=== PATIENT | female | born 1980 | race Caucasian/White ===

== ENCOUNTER 2024-01-03 15:47 | Outpatient (CLI) | payer MEDICAID, OTHER | END 2024-01-03 15:48 | disposition home or self-care (01) | LOC: CSHLAB 15:47 | PROVIDERS: ATTEND Obstetrics & Gynecology | DX: Z01.812 Encounter for preprocedural laboratory examination (principal); Z85.3 Personal history of malignant neoplasm of breast | CPT/HCPCS: 84703; 85027; 86850; 86900; 86901 ==

== ENCOUNTER 2024-01-07 08:21 | Day surgery (SDC) | payer OTHER ==
[2024-01-03 17:14] LABS: Hematocrit 38.4 % (34.9-44.5); Hemoglobin 13.3 g/dL (12.0-15.5); Mean Corpuscular HGB CONC 34.6 g/dL (32.0-36.0); Mean Corpuscular Hemoglobin 31.3 pg (27.0-33.0); Mean Corpuscular Volume 90.4 fL (81.6-98.3); Mean Platelet Volume 10.2 fL (7.4-10.4); Platelet Count 220 10x3/uL (150-450); RBC Distribution Width 11.9 % (11.5-14.5); Red Blood Cell (RBC) Count 4.25 10x6/uL (3.90-5.03); White Blood Cell (WBC) Count 6.8 10x3/uL (3.5-10.5)
[2024-01-03 17:27] LABS: BHCG - Serum Negative (NEGATIVE); Pregs Control Background? CLEAR/WHITE (CLR/WHITE); Pregs Control Bar Appear? YES (CONTROL BAR)
[2024-01-07] MEDS ORDERED: CeleCOXIB 100 MG CAP ONE (08:38)
[2024-01-07] MEDS ORDERED: Gabapentin 300 MG CAP ONE (08:38)
[2024-01-07] MEDS ORDERED: Famotidine/PF 20 mg/2ml Vial ONE (08:39)
[2024-01-07] MEDS ORDERED: EPINEPHrine 1 MG/ML VIAL ONE (09:12)
[2024-01-07] MEDS ORDERED: Bupivacaine PF 0.5% 30 ML VIAL ONE (09:12)
[2024-01-07] MEDS ORDERED: CEFAZOLIN 2 GM VIAL ONE (10:02)
[2024-01-07] MEDS ORDERED: Rocuronium Bromide 10 MG/ML (10ML VIAL) ONE (10:20)
[2024-01-07] MEDS ORDERED: Lidocaine 1% PF 5 ML VIAL ONE (10:20)
[2024-01-07] MEDS ORDERED: PROPOFOL 20 ML ONE (10:22)
[2024-01-07] MEDS ORDERED: fentaNYL 50 mcg/mL 1 mL Vial ONE ×2 (10:22→12:58)
[2024-01-07] MEDS ORDERED: Midazolam HCl 2 mg/2 ml Vial ONE (10:23)
[2024-01-07] MEDS ORDERED: Fentanyl 250 MCG/5 ML VIAL ONE (11:14)
[2024-01-07] MEDS ORDERED: Ondansetron PF 4 MG/2 ML Vial ONE ×2 (11:26→14:59)
[2024-01-07] MEDS ORDERED: Dexmedetomidine 200 MCG/2 ML VIAL ONE (11:26)
[2024-01-07] MEDS ORDERED: Dexamethasone 20 MG/5 ML VIAL ONE (11:26)
[2024-01-07] MEDS ORDERED: Ketorolac Tromethamine 30 MG (1 mL) VIAL ONE (11:26)
[2024-01-07] MEDS ORDERED: SUGAMMADEX SODIUM 200 MG/2 ML VIAL ONE (11:54)
[2024-01-07] MEDS ORDERED: oxyCODONE 5 MG TAB ONE (14:16)
== END 2024-01-07 15:40 | disposition home or self-care (01) ==
LOC: CSHSDC 08:21
PROVIDERS: ATTEND Obstetrics & Gynecology
PROC: 0UT94ZZ Resection of Uterus, Percutaneous Endoscopic Approach (ICD-10-PCS; principal; 2024-01-07)
PROC: 0UT74ZZ Resection of Bilateral Fallopian Tubes, Percutaneous Endoscopic Approach (ICD-10-PCS; principal; 2024-01-07)
PROC: 0UT24ZZ Resection of Bilateral Ovaries, Percutaneous Endoscopic Approach (ICD-10-PCS; principal; 2024-01-07)
DX: D26.1 Other benign neoplasm of corpus uteri (principal); N72 Inflammatory disease of cervix uteri; N87.9 Dysplasia of cervix uteri, unspecified; C50.912 Malignant neoplasm of unspecified site of left female breast; E03.9 Hypothyroidism, unspecified; Z88.5 Allergy status to narcotic agent; Z79.899 Other long term (current) drug therapy; Z98.890 Other specified postprocedural states; Z79.890 Hormone replacement therapy
CPT/HCPCS: 84703; 85027; 86850; 86900; 86901; 88307; C1889; J0171; J0665; J1100; J1885; J2250; J2405; J2704; J3010; S0028